=== PATIENT | male | born 1960 | race Caucasian/White ===

== ENCOUNTER → 2019-01-27 | Outpatient (CLI) | payer OTHER | LOC: FIMAGING 07:37 | PROVIDERS: ATTEND Radiology Diagnostic Radiology | DX: M79.604 Pain in right leg (principal); M79.605 Pain in left leg ==

== ENCOUNTER → 2019-02-02 | Outpatient (CLI) | payer OTHER ==
[~2019-02-02] MED LIST: IOPAMIDOL (ISOVUE-370) 150 ML BTL IV ONE
== END ==
LOC: FIMAGING 07:50
PROVIDERS: ATTEND Radiology Diagnostic Radiology
DX: R22.43 Localized swelling, mass and lump, lower limb, bilateral (principal); I83.893 Varicose veins of bilateral lower extremities with other complications; Z95.820 Peripheral vascular angioplasty status with implants and grafts
CPT/HCPCS: Q9967